=== PATIENT | male | born 1985 | race Caucasian/White ===

== ENCOUNTER 2016-11-26 12:33 | Emergency (ER) | payer OTHER ==
--- NOTE | ~2016-11-26 | CR142 ---
[facility] A Service of [facility] & [facility] RADIOLOGY TEXT RESULTS PATIENT: JOCELIN WINTERS LOCATION: CFTX : 89 UNIT #: [id number] AGE: [address]: Lisha Murillo APRN SEX: M ORDER DR: [id number] [facility] [address] [place], [place] [address] [id number] E MR#: [id number] Acc #: [id number] NAME: JOCELIN WINTERS : 1985 SEX: M STUDY DATE/TIME: 11/26/2016 13:39 UNIT: [facility] ROOM: STUDY DESCRIPTION: CR Hand Min 3 Views Rt Attending Physician: Lisha Murillo A.P.R.N. Ordering Physician: Joel Nunes M.D. Primary Care Physician: No Primary Care Physician MEDICAL IMAGING REPORT This report is preliminary unless electronic signature is present EXAM Right hand, 3 views. HISTORY Right hand pain since late last night. Pain mainly third digit, history also states 2 x 4 boards fell on right hand. FINDINGS Three views of the right hand demonstrates soft tissue swelling over the dorsum of the hand, particularly at the level of the third MCP joint with radiodensities within the dorsal soft tissues at the third MCP joint compatible with metal fragments or radiodense foreign body. Subtle irregularity along the base of the proximal phalanx of the third finger but no definite fracture. Joint spaces maintained. Dictated by... Yuridia Ballard M.D. THIS IS AN ELECTRONICALLY VERIFIED REPORT Yuridia Ballard M.D. at 11/27/2016 12:31 PM Anibal TD: 11/27/2016 00:52 JOB #: [id number] MEDICAL IMAGING REPORT Page 1 of 1 COPY
[~2016-11-26 12:33] MED LIST: NO MEDICATIONS
== END 2016-11-26 15:20 | disposition home or self-care (01) ==
LOC: CFTX 12:33 → CED 12:33 → CFTX 13:44
DX: S61.212A Laceration without foreign body of right middle finger without damage to nail, initial encounter (principal); F17.210 Nicotine dependence, cigarettes, uncomplicated; W20.8XXA Other cause of strike by thrown, projected or falling object, initial encounter; Y92.009 Unspecified place in unspecified non-institutional (private) residence as the place of occurrence of the external cause
CPT/HCPCS: 29125; 73130; 99283